=== PATIENT | male | born 1970 | race Caucasian/White ===

== ENCOUNTER 2017-08-03 11:19 | Emergency (ER) | payer BC ==
[~2017-08-03] VITALS: Ht 185.4 cm; Wt 104.3 kg
[~2017-08-03 11:19] MED LIST: ALBU90OI INH; AZIT250 PO; DRON2.5; LEVSOD50; Monodox100 MG PO; NAPR550 PO; PRED20 PO; PROCODE120 PO; Prednisone20 MG PO; RXNAPNA550 PO; RXTRAM50 PO; TRAM50 PO; Ventolin Soln3 ML INH
[2017-08-03] MEDS ORDERED: Prilosec Otc20 MG PO (11:53)
[2017-08-03] MEDS ORDERED: IBUP600 PO (12:26)
[2017-08-03] MEDS ORDERED: Voltaren100 GM TOP (12:26)
== END 2017-08-03 12:40 | disposition home or self-care (01) ==
LOC: ER 11:19
DX: M25.462 Effusion, left knee (principal); J45.909 Unspecified asthma, uncomplicated; F17.200 Nicotine dependence, unspecified, uncomplicated; Z87.01 Personal history of pneumonia (recurrent); Z79.899 Other long term (current) drug therapy
CPT/HCPCS: 73564; 99283

== ENCOUNTER 2017-08-26 13:55 | Day surgery (SDC) | payer BC, OTHER ==
[~2017-08-26] VITALS: Ht 185.4 cm; Wt 104.8 kg
[~2017-08-26 13:55] MED LIST changes: +IBUP600 PO; +Prilosec Otc20 MG PO; +Voltaren100 GM TOP
== END 2017-08-26 15:25 | disposition home or self-care (01) ==
LOC: ORSCSDS 13:55
PROVIDERS: Internal Medicine Gastroenterology
PROC: 0DB58ZX Excision of Esophagus, Via Natural or Artificial Opening Endoscopic, Diagnostic (ICD-10-PCS; principal; 2017-08-26 15:15)
DX: K22.70 Barrett's esophagus without dysplasia (principal); E66.9 Obesity, unspecified; J45.909 Unspecified asthma, uncomplicated; Z68.31 Body mass index [BMI] 31.0-31.9, adult; F17.210 Nicotine dependence, cigarettes, uncomplicated; Z79.899 Other long term (current) drug therapy
CPT/HCPCS: 88305

== ENCOUNTER 2018-09-19 10:38 | Emergency (ER) | payer BC ==
[~2018-09-19] VITALS: Ht 185.4 cm; Wt 102.1 kg
[2018-09-19 11:29] LABS: Influenza A Negative (NEGATIVE); Influenza B Negative (NEGATIVE)
[2018-09-19] MEDS ORDERED: BENZ100A PO (11:34)
[2018-09-19] MEDS ORDERED: Cheratussin AC118 ML PO (11:34)
[2018-09-19] MEDS ORDERED: Sudogest30 MG PO (11:34)
[2018-09-19] MEDS ORDERED: Flonase 0.05% N16 GM (11:34)
[2018-09-22] MEDS ORDERED: ALBU90OI INH (17:03)
[2018-09-22] MEDS ORDERED: ADVAIR DISKU (17:07)
[2018-09-22] MEDS ORDERED: Prednisone20 MG PO (17:26)
== END 2018-09-19 11:49 | disposition home or self-care (01) ==
LOC: ER 10:38
PROVIDERS: Physician Assistant
DX: J06.9 Acute upper respiratory infection, unspecified (principal); J45.909 Unspecified asthma, uncomplicated; F17.200 Nicotine dependence, unspecified, uncomplicated; Z79.899 Other long term (current) drug therapy
CPT/HCPCS: 71046; 87804; 99283-25

== ENCOUNTER 2021-06-03 07:28 | Emergency (ER) | payer BC ==
[~2021-06-03] VITALS: Ht 185.4 cm; Wt 104.3 kg
[~2021-06-03 07:28] MED LIST changes: +ADVAIR DISKU; +BENZ100A PO; +Cheratussin AC118 ML PO; +Flonase 0.05% N16 GM; +Sudogest30 MG PO
[2021-06-03] MEDS ORDERED: OMEPRAZOLE DR 40 MG (07:40)
[2021-06-03] MEDS ORDERED: AZIT250 (07:40)
[2021-06-03] MEDS ORDERED: CODEINE-GUAIFE120 M1 PO (09:20)
[2021-06-03] MEDS ORDERED: PSEUDOEPHEDRINE30 M1 PO (09:20)
== END 2021-06-03 09:39 | disposition home or self-care (01) ==
LOC: ER 07:28
DX: J06.9 Acute upper respiratory infection, unspecified (principal); J45.909 Unspecified asthma, uncomplicated; Z79.899 Other long term (current) drug therapy; Z20.822 Contact with and (suspected) exposure to COVID-19; F17.210 Nicotine dependence, cigarettes, uncomplicated
CPT/HCPCS: 71046; 87081; 87430; 99283-25; A9270

== ENCOUNTER 2021-06-08 19:52 | Emergency (ER) | payer BC ==
[~2021-06-08] VITALS: Ht 185.4 cm; Wt 104.3 kg
[~2021-06-08 19:52] MED LIST changes: +AZIT250; +CODEINE-GUAIFE120 M1 PO; +OMEPRAZOLE DR 40 MG; +PSEUDOEPHEDRINE30 M1 PO
[2021-06-08] MEDS ORDERED: AMOCLA875 PO ×2 (20:15→20:23)
== END 2021-06-08 20:38 | disposition home or self-care (01) ==
LOC: ER 19:52
DX: J32.9 Chronic sinusitis, unspecified (principal); J45.909 Unspecified asthma, uncomplicated; F17.200 Nicotine dependence, unspecified, uncomplicated
CPT/HCPCS: 99282; A9270

== ENCOUNTER 2023-01-15 17:36 | Emergency (ER) | payer BC ==
[~2023-01-15] VITALS: Ht 185.4 cm; Wt 106.6 kg
[~2023-01-15 17:36] MED LIST changes: +AMOCLA875 PO
[2023-01-15 18:29] LABS: BASOPHILS ABSOLUTE AUTO 0.11 K/mm3 (0.00-0.23); BASOPHILS PERCENT AUTO 1 % (0-2); EOSINOPHILS ABSOLUTE AUTO 0.19 K/mm3 (0.00-0.68); EOSINOPHILS PERCENT AUTO 2 % (0-6); Hematocrit 42.8 % (37.0-53.0); Hemoglobin 14.6 g/dL (13.5-17.5); IMMATURE GRAN ABSOLUTE AUTO 0.07 K/mm3 (0.00-0.10); IMMATURE GRAN PERCENT AUTO 1 % (0-1); LYMPHOCYTES ABSOLUTE AUTO 2.82 K/mm3 (0.84-5.20); LYMPHOCYTES PERCENT AUTO 33 % (21-46); MONOCYTES PERCENT AUTO 10 % (4-13); Mean Corpuscular HGB 30.6 pg (26.0-34.0); Mean Corpuscular HGB Conc 34.1 g/dL (31.5-36.5); Mean Corpuscular Volume 90 fL (80-100); Mean Platelet Volume 10.3 fL (9.1-12.4); NEUTROPHILS PERCENT AUTO 53 % (41-73); Platelet Count 235 K/mm3 (150-400); RDW Coefficient Variation 12.9 % (11.7-14.2); RDW Standard Deviation 42.2 fL (35.1-46.3); Red Blood Cell Count 4.77 M/mm3 (4.30-5.90); White Blood Cell Count 8.69 K/mm3 (4.00-11.30)
[2023-01-15 18:51] LABS: Albumin, Blood 3.9 g/dL (3.4-5.0); Albumin/Globulin Ratio 1.1 (0.8-1.8); Bilirubin, Total 0.4 mg/dL (0.1-1.0); Bun/Creatinine Ratio 12.3 (12.0-20.0); Calcium, Blood 8.6 mg/dL (8.5-10.1); Creatinine, Blood 1.06 mg/dL (0.60-1.20); Globulin, Blood 3.7 g/dL (2.2-4.0); Potassium, Blood 3.9 mmol/L (3.5-5.5); Total Protein, Blood 7.6 g/dL (6.4-8.2)
[2023-01-15 18:56] LABS: Source, Urine Clean Catch
[2023-01-15 19:13] LABS: Appearance, Urine Clear (Clear); Bilirubin, Urine Neg (Neg); Blood, Urine 2+ (Neg); Color, Urine Yellow (P-Yellow); Glucose Qualitative, Urine Neg (Neg); Ketones, Urine Neg (Neg); Leukocyte Esterase, Urine Neg (Neg); Nitrite, Urine Neg (Neg); Protein, Urine Neg (Neg); Urobilinogen, Urine NORM (Normal)
[2023-01-15 19:39] LABS: Bacteria Rare /hpf; Squamous Epithelial Cells Rare /hpf (Few); White Blood Cells, Urine 0-2 /hpf (0-5)
[2023-01-15 21:45] VITALS: BP 135/67
[2023-01-15] MEDS ORDERED: AMOCLA875 PO (22:00)
== END 2023-01-15 22:22 | disposition home or self-care (01) ==
LOC: ER 17:36
PROVIDERS: Physician Assistant
DX: K52.9 Noninfective gastroenteritis and colitis, unspecified (principal); J45.909 Unspecified asthma, uncomplicated; K21.9 Gastro-esophageal reflux disease without esophagitis; F17.210 Nicotine dependence, cigarettes, uncomplicated; Z79.899 Other long term (current) drug therapy
CPT/HCPCS: 74177; 80053; 81001; 83690; 85025; A9270; J1885; Q9967